=== PATIENT | male | born 1985 | race Caucasian/White ===

== ENCOUNTER 2018-01-04 21:12 | Emergency (ER) | payer BC ==
[2018-01-04 21:27] VITALS: BP 138/91
--- NOTE | 2018-01-04 22:12 | UC ---
Respiratory Complaint HPI - HPI Summary HPI Summary: 1 week of sinus pressure and headache with intermittent dizziness and nausea. Patient has a cough and sore throat with some abdominal pain and loose stools. Had a flu shot couple of weeks ago. Possible fever 2 days ago but none since. - History of Current Complaint Chief Complaint: UCGeneralIllness Stated Complaint: FLU SYMPTOMS Time Seen by Provider: 01/04/18 21:51 Hx Obtained From: Patient Onset/Duration: Gradual Onset, Lasting Days, Still Present Timing: Constant Severity Initially: Moderate Severity Currently: Moderate Pain Intensity: 5 Pain Scale Used: 0-10 Numeric Character: Cough: Nonproductive Aggravating Factors: Nothing Alleviating Factors: Nothing Associated Signs And Symptoms: Positive: URI, Sinus Discomfort. Negative: Wheezing - Allergies/Home Medications Allergies/Adverse Reactions: Allergies Allergy/AdvReac Type Severity Reaction Status Date / Time hydrocodone Allergy Rash Verified 01/04/18 21:28 ondansetron [From Zofran] Allergy Rash Verified 01/04/18 21:29 Opioids-Methadone and Related Allergy Rash Verified 01/04/18 21:29 PMH/Surg Hx/FS Hx/Imm Hx Previously Healthy: Yes - Surgical History Surgical History: Yes Surgery Procedure, Year, and Place: appe 2005. Kidney stones removal - Family History Known Family History: Negative: Hypertension - Social History Alcohol Use: None Substance Use Type: Marijuana Substance Use Comment - Amount & Last Used: WEEKENDS Smoking Status (MU): Never Smoked Tobacco Have You Smoked in the Last Year: No Review of Systems Constitutional: Chills, Fatigue ENT: Sore Throat, Nasal Discharge, Sinus Congestion Respiratory: Cough Cardiovascular: Negative Gastrointestinal: Negative Neurological: Headache All Other Systems Reviewed And Are Negative: Yes Physical Exam Triage Information Reviewed: Yes Appearance: Well-Appearing, No Pain Distress, Well-Nourished Vital Signs: Initial Vital Signs Temp 99.2 F 01/04/18 21:21 Pulse 81 01/04/18 21:21 Resp 16 01/04/18 21:21 BP 138/91 01/04/18 21:21 Pulse Ox 98 01/04/18 21:21 Vital Signs Reviewed: Yes Eyes: Positive: Conjunctiva Clear ENT: Positive: Hearing grossly normal, Pharynx normal, TMs normal Neck: Positive: Supple, Nontender, No Lymphadenopathy Respiratory Exam: Normal Cardiovascular Exam: Normal Abdomen Description: Positive: Soft, Other: - MILDLY TENDER DIFFUSELY. NO REBOUND OR RIGIDITY. Negative: CVA Tenderness (R), CVA Tenderness (L), Distended, Guarding Bowel Sounds: Positive: Present Musculoskeletal: Positive: No Edema Neurological: Positive: Alert Psychological: Positive: Age Appropriate Behavior Skin: Negative: rashes UC Diagnostic Evaluation - Laboratory O2 Sat by Pulse Oximetry: 98 Respiratory Course/Dx - Differential Dx/Diagnosis Provider Diagnoses: ACUTE VIRAL SYNDROME Discharge - Sign-Out/Discharge Documenting (check all that apply): Patient Departure All imaging exams completed and their final reports reviewed: No Studies - Discharge Plan Condition: Stable Disposition: HOME Patient Education Materials: Viral Syndrome (ED) Forms: *Work Release Referrals: Flower Acevedo MD [Primary Care Provider] - If Needed Additional Instructions: YOUR SYMPTOMS ARE LIKELY VIRALLY MEDIATED AND SHOULD RESOLVE ON THEIR OWN WITH TIME. NO INDICATION FOR ANTIBIOTICS AT PRESENT. REST, HYDRATE, OTC MEDS NEEDED. SEEK FOLLOW-UP IF YOU ARE NOT IMPROVING OVER THE NEXT 1-2 WEEKS. VIRAL SYNDROME: The physician has diagnosed a viral infection. Viruses not only cause "colds," but can cause many different symptoms including generalized aching, fever, headache, cough, diarrhea, nausea, vomiting, and fatigue. The treatment, for the most part, is simply relief of symptoms. This means that antibiotics are usually not given. Rest, fluids, pain medications and, occasionally, medication for the specific symptoms that are most bothersome will be prescribed. Go to the ED if you develop any new or unusual symptoms such as severe headache, stiff neck, high fever, chest pain, productive cough, or shortness of breath. You should be rechecked if you don't see marked improvement within 10 to 14 days. - Billing Disposition and Condition Condition: STABLE Disposition: Home
== END 2018-01-04 22:11 | disposition home or self-care (01) ==
LOC: UCEAST 21:12
DX: B34.9 Viral infection, unspecified (principal); R51 Headache; R42 Dizziness and giddiness; R11.0 Nausea; R05 Cough; J02.9 Acute pharyngitis, unspecified; J34.89 Other specified disorders of nose and nasal sinuses; R10.9 Unspecified abdominal pain; Z88.5 Allergy status to narcotic agent; Z88.8 Allergy status to other drugs, medicaments and biological substances
CPT/HCPCS: 99211; G0463

== ENCOUNTER 2018-09-09 10:12 | Emergency (ER) | payer BC ==
--- NOTE | 2018-09-09 10:39 | UC ---
Skin Complaint HPI - HPI Summary HPI Summary: 33 yo male presents with rash to right leg. He tells me that 2 days ago he was outside a lot and was playing with a child. Was doing a lot of sitting and laying on the pavement, concrete, and grass. Yesterday morning noticed a faint redness to his right leg that was a little more red around his right ankle. Today the redness has become darker and he has some pain in the bottom of his foot when walking. He took some ibuprofen which helped a little. Denies exposure to any allergen, fever, chills, recent illness, sore throat, SOB, chest pain. He also stubbed his right 5th toe on a toy firetruck and is black and blue today. - History of Current Complaint Time Seen by Provider: 09/09/18 10:39 Stated Complaint: SKIN ISSUE Hx Obtained From: Patient Onset/Duration: Gradual Onset Onset Severity: Mild Current Severity: Mild Pain Intensity: 1 Pain Scale Used: 0-10 Numeric - Allergy/Home Medications Allergies/Adverse Reactions: Allergies Allergy/AdvReac Type Severity Reaction Status Date / Time hydrocodone Allergy Rash Verified 09/09/18 10:38 ondansetron [From Zofran] Allergy Rash Verified 09/09/18 10:38 Opioids-Methadone and Related Allergy Rash Verified 09/09/18 10:38 PMH/Surg Hx/FS Hx/Imm Hx - Additional Past Medical History Additional PMH: Lyme disease - Surgical History Surgical History: Yes Surgery Procedure, Year, and Place: appe 2005. Kidney stones removal - Family History Known Family History: Negative: Hypertension - Social History Lives: With Family Alcohol Use: None Substance Use Type: Marijuana Substance Use Comment - Amount & Last Used: WEEKENDS Smoking Status (MU): Never Smoked Tobacco Have You Smoked in the Last Year: No Review of Systems All Other Systems Reviewed And Are Negative: Yes Constitutional: Positive: Negative Skin: Positive: Rash Respiratory: Positive: Negative Cardiovascular: Positive: Negative Neurovascular: Positive: Negative Musculoskeletal: Positive: Other: - 5th toe pain Neurological: Positive: Negative Psychological: Positive: Negative Physical Exam - Summary Physical Exam Summary: GENERAL: NAD. WDWN. No pain distress. SKIN: LEFT LOWER LEG: Scant mild erythema with faint warmth RIGHT LOWER LEG: At the medial ankle there is a moderately erythematous flat rash extending from the inferior medial maellous to the distal medial tibia. Remainder of leg with scant faint erythema. NTTP. Mild warmth. No edema, open wounds, drainage, or streaking. NECK: Supple. Nontender. No lymphadenopathy. CHEST: CTAB. No r/r/w. No accessory muscle use. Breathing comfortably and in no distress. CV: RRR. Without m/r/g. Pulses intact. TP and DP b/l LEs intact. Cap refill < 2seconds MSK: Right 5th toe with ecchymosis and mild edema. NTTP. FROM without pain. RIGHT ANKLE: FROM without pain. NEURO: Alert. PSYCH: Age appropriate behavior. Triage Information Reviewed: Yes Vital Signs: Vital Signs: Temp Pulse Resp BP Pulse Ox 97.6 F 84 18 118/87 99 09/09/18 10:39 09/09/18 10:39 09/09/18 10:39 09/09/18 10:39 09/09/18 10:39 Vital Signs Reviewed: Yes Course/Dx - Course Course Of Treatment: He has no pain in his right 5th toe and has FROM. Discussed obtaining XRs today , but pt declined and he will krystal tape the toe. Regarding his rash; I suspect photodermatitis vs cellulitis. I asked Dr. Brush to examine the rash and he suggests cellulitis. Will place pt on Clindamycin. The borders of the rash were marked with a purple marking pen. Advised pt that if the rash spreads beyond the borders or if he develops a fever, new, or worsening symptoms to go to the ED. He voiced understanding and agrees with the plan. - Diagnoses Provider Diagnosis: Cellulitis Discharge - Sign-Out/Discharge Documenting (check all that apply): Patient Departure All imaging exams completed and their final reports reviewed: No Studies - Discharge Plan Condition: Stable Disposition: HOME Prescriptions: Clindamycin Cap(NF) [Clindamycin Cap 300 mg Cap(NF)] 300 mg PO TID #21 cap Patient Education Materials: Cellulitis (ED) Forms: *Work Release Referrals: Flower Acevedo MD [Primary Care Provider] - Additional Instructions: If you develop a fever, shortness of breath, chest pain, new or worsening symptoms - please call your PCP or go to the ED immediately. Monitor the area and if you notice the redness increasing in size beyond the marked borders - please go to the ER. - Billing Disposition and Condition Condition: STABLE Disposition: Home
[2018-09-09 10:46] VITALS: BP 118/87
== END 2018-09-09 11:21 | disposition home or self-care (01) ==
LOC: UCEAST 10:12
DX: L03.115 Cellulitis of right lower limb (principal); Z88.5 Allergy status to narcotic agent; Z88.8 Allergy status to other drugs, medicaments and biological substances
CPT/HCPCS: 99212; G0463

== ENCOUNTER 2019-02-28 19:05 | Emergency (ER) | payer BC ==
[2019-02-28 19:43] LABS: ABS Basophils 0.1 10^3/ul (0-0.2); ABS Eosinophils 0.1 10^3/ul (0-0.6); ABS Lymphocytes 1.4 10^3/ul (1.0-4.8); ABS Monocytes 0.7 10^3/ul (0-0.8); ABS Neutrophils 4.4 10^3/ul (1.5-7.7); Eosinophil % 0.9 %; Hematocrit 43 % (42-52); Hemoglobin 15.2 g/dL (14.0-18.0); Lymphocyte % 20.7 %; Mean Corpuscular HGB Conc 35 g/dL (31-36); Mean Corpuscular Hemoglobin 31 pg (27-31); Mean Corpuscular Volume 89 fL (80-94); Mean Platelet Volume 9.3 fL (7.4-10.4); Nucleated Red Blood Cells % 0.1; Platelet Count 217 10^3/uL (150-450); Red Blood Count 4.85 10^6 /uL (4.18-5.48); Red Cell Distribution Width 13 % (10-15); White Blood Count 6.5 10^3/uL (3.5-10.8)
[2019-02-28 19:51] LABS: INR 1.02 (0.82-1.09)
[2019-02-28 20:08] LABS: Albumin 4.6 g/dL (3.2-5.2); Albumin/Globulin Ratio 1.6 (1-3); BUN/Creatinine Ratio 8.9 (8-20); Calcium 9.5 mg/dL (8.6-10.3); EGFR African American 91.4 (>60); EGFR Non-African American 75.5 (>60); Globulin 2.9 g/dL (2-4); Potassium 3.8 mmol/L (3.5-5.0); Total Bilirubin 0.4 mg/dL (0.2-1.0); Total Protein 7.5 g/dL (6.4-8.9)
--- NOTE | 2019-02-28 23:47 | ED ---
HPI Chest Pain - HPI Summary HPI Summary: Patient complains of dry cough 3 weeks, with sore throat, constant sternal chest pain and SOB S/P episodes of hacking cough starting today around 5 PM. Chest pain at worse 7/10, currently resolving. No pain with inhalation, no pain with movement. Denies fever, ear pain, neck stiffness, N/V/D, abdominal pain, change in urine, change in BM. Denies prior cardiac history. Denies prior respiratory history. Denies family cardiac history. Nonsmoker. Medical history is none. - History of Current Complaint Chief Complaint: EDUpperRespComplaint Time Seen by Provider: 02/28/19 23:44 Hx Obtained From: Patient Onset/Duration: Started Hours Ago Timing: Constant Initial Severity: Moderate Current Severity: Mild Pain Intensity: 6 Pain Scale Used: 0-10 Numeric Chest Pain Location: Mid Sternal Chest Pain Radiates: No Character: Burning Aggravating Factor(s): Other: Alleviating Factor(s): Spontaneous Resolution Associated Signs and Symptoms: Positive: Chest Pain, Shortness of Breath, Cough , Nonproductive Cough - Allergy/Home Medications Allergies/Adverse Reactions: Allergies Allergy/AdvReac Type Severity Reaction Status Date / Time hydrocodone Allergy Rash Verified 02/28/19 19:23 ondansetron [From Zofran] Allergy Rash Verified 02/28/19 19:23 Opioids-Methadone and Related Allergy Rash Verified 02/28/19 19:23 PMH/Surg Hx/FS Hx/Imm Hx Endocrine/Hematology History: Denies: Hx Bone Marrow Disease, Hx Diabetes, Hx Sickle Cell Disease, Hx Thyroid Disease, Hx Anemia Cardiovascular History: Denies: Hx Hypertension, Hx Pacemaker/ICD, Other Cardiovascular Problems/ Disorders Respiratory History: Denies: Hx Asthma, Hx Chronic Obstructive Pulmonary Disease (COPD) GI History: Reports: Hx Hiatal Hernia Denies: Hx Ulcer, Other GI Disorders History: Reports: Hx Kidney Stones - RIGHT Musculoskeletal History: Reports: Hx Arthritis - HANDS Denies: Other Musculoskeletal History Sensory History: Reports: Hx Contacts or Glasses - CONTACTS Denies: Hx Hearing Aid Opthamlomology History: Reports: Hx Contacts or Glasses - CONTACTS Neurological History: Reports: Hx Migraine - 1-2 PER YEAR Psychiatric History: Denies: Hx Panic Disorder - Surgical History Surgery Procedure, Year, and Place: appe 2005. Kidney stones removal Hx Anesthesia Reactions: No Infectious Disease History: No Infectious Disease History: Denies: Hx Clostridium Difficile, Hx Hepatitis, Hx Human Immunodeficiency Virus (HIV), Hx of Known/Suspected MRSA, Hx Shingles, Hx Tuberculosis, Hx Known/ Suspected VRE, Hx Known/Suspected VRSA, History Other Infectious Disease, Traveled Outside the [place] in Last 30 Days - Family History Known Family History: Negative: Hypertension - Social History Alcohol Use: None Substance Use Type: Reports: Marijuana Substance Use Comment - Amount & Last Used: WEEKENDS Smoking Status (MU): Never Smoked Tobacco Have You Smoked in the Last Year: No Review of Systems Constitutional: Negative Eyes: Negative Positive: Sore Throat Positive: Chest Pain Positive: Shortness Of Breath, Cough Gastrointestinal: Negative Genitourinary: Negative Musculoskeletal: Negative Skin: Negative Neurological: Negative Psychological: Normal All Other Systems Reviewed And Are Negative: Yes Physical Exam - Summary Physical Exam Summary: Chest pain not reproducible. Lung sounds clear to auscultation bilaterally. Triage Information Reviewed: Yes Vital Signs On Initial Exam: Initial Vitals Temp Pulse Resp BP Pulse Ox 97.7 F 90 16 130/84 98 02/28/19 19:15 02/28/19 19:15 02/28/19 19:15 02/28/19 19:15 02/28/19 19:15 Vital Signs Reviewed: Yes Appearance: Positive: Well-Appearing Skin: Positive: Warm Head/Face: Positive: Normal Head/Face Inspection Eyes: Positive: Normal ENT: Positive: Pharyngeal erythema, TMs normal, Tonsillar swelling, Uvula midline. Negative: Tonsillar exudate, Trismus, Muffled voice, Hoarse voice Neck: Positive: Supple Respiratory/Lung Sounds: Positive: Clear to Auscultation Cardiovascular: Positive: Normal Abdomen Description: Positive: Nontender Musculoskeletal: Positive: Normal Neurological: Positive: Normal Psychiatric: Positive: Normal AVPU Assessment: Alert - Kimberly Coma Scale Best Eye Response: 4 - Spontaneous Best Motor Response: 6 - Obeys Commands Best Verbal Response: 5 - Oriented Coma Scale Total: 15 Procedures - Sedation Patient Received Moderate/Deep Sedation with Procedure: No Diagnostics - Vital Signs Vital Signs Temp Pulse Resp BP Pulse Ox 02/28/19 21:39 97.7 F 84 16 154/93 98 02/28/19 19:15 97.7 F 90 16 130/84 98 - Laboratory Lab Results: Lab Results 1202/28/19 02/28/19 Range/Units 19:30 19:30 19:30 WBC 6.5 (3.5-10.8) 10^3/uL RBC 4.85 (4.18-5.48) 10^6 /uL Hgb 15.2 (14.0-18.0) g/dL Hct 43 (42-52) % MCV 89 (80-94) fL MCH 31 (27-31) pg MCHC 35 (31-36) g/dL RDW 13 (10-15) % Plt Count 217 (150-450) 10^3/uL MPV 9.3 (7.4-10.4) fL Neut % (Auto) 67.5 % Lymph % (Auto) 20.7 % Hays % (Auto) 10.1 % Eos % (Auto) 0.9 % Baso % (Auto) 0.8 % Absolute Neuts (auto) 4.4 (1.5-7.7) 10^3/ul Absolute Lymphs (auto) 1.4 (1.0-4.8) 10^3/ul Absolute Monos (auto) 0.7 (0-0.8) 10^3/ul Absolute Eos (auto) 0.1 (0-0.6) 10^3/ul Absolute Basos (auto) 0.1 (0-0.2) 10^3/ul Absolute Nucleated RBC 0.0 10^3/ul Nucleated RBC % 0.1 INR (Anticoag Therapy) 1.02 (0.82-1.09) Sodium 138 (135-145) mmol/L Potassium 3.8 (3.5-5.0) mmol/L Chloride 104 (101-111) mmol/L Carbon Dioxide 27 (22-32) mmol/L Anion Gap 7 (2-11) mmol/L BUN 10 (6-24) mg/dL Creatinine 1.12 (0.67-1.17) mg/dL Est GFR ( Amer) 91.4 (>60) Est GFR (Non-Af Amer) 75.5 (>60) BUN/Creatinine Ratio 8.9 (8-20) Glucose 95 (70-100) mg/dL Calcium 9.5 (8.6-10.3) mg/dL Total Bilirubin 0.40 (0.2-1.0) mg/dL AST 21 (13-39) U/L ALT 37 (7-52) U/L Alkaline Phosphatase 59 (34-104) U/L Troponin I 0.00 (<0.03) ng/mL Total Protein 7.5 (6.4-8.9) g/dL Albumin 4.6 (3.2-5.2) g/dL Globulin 2.9 (2-4) g/dL Albumin/Globulin Ratio 1.6 (1-3) Result Diagrams: 02/28/19 19:30 02/28/19 19:30 Lab Statement: Any lab studies that have been ordered have been reviewed, and results considered in the medical decision making process. Chest Pain Course/Dx - Course Course Of Treatment: Patient complains of dry cough 3 weeks, with sore throat, constant sternal chest pain and SOB S/P episodes of hacking cough starting today around 5 PM. Chest pain at worse 7/10, currently resolving. No pain with inhalation, no pain with movement. Denies fever, ear pain, neck stiffness, N/V/D, abdominal pain, change in urine, change in BM. Denies prior cardiac history. Denies prior respiratory history. Denies family cardiac history. Nonsmoker. Medical history is none. Vital signs within normal limits. Labs unremarkable. Chest x-ray unremarkable. Strep negative. - Diagnoses Provider Diagnoses: Pharyngitis, Cough, Chest pain Discharge ED - Sign-Out/Discharge Documenting (check all that apply): Patient Departure - Discharge Plan Condition: Stable Disposition: HOME Patient Education Materials: Pharyngitis (ED) Referrals: Flower Acevedo MD [Primary Care Provider] - Additional Instructions: Use Tessalon pearls as directed for cough. Alternate ibuprofen 600 mg with Tylenol 650 mg every 3 hours as needed for chest pain related to cough. Follow- up with primary care. Return to the ED for any new or worsening symptoms. - Billing Disposition and Condition Condition: STABLE Disposition: Home
[2019-03-01] MEDS ORDERED: Benzonatate CAP* 100 MG PO ONE (00:20)
[2019-03-01 00:55] LABS: Rapid Strep Molecular Negative (Negative)
[2019-03-01 01:02] LABS: Influenza A Molecular NEGATIVE (Negative); Influenza B Molecular NEGATIVE (Negative)
[2019-03-01] MEDS ORDERED: Azithromycin TAB* 250 MG PO ONE (01:06)
[2019-03-01 01:21] VITALS: BP 122/90
== END 2019-03-01 01:21 | disposition home or self-care (01) ==
LOC: ED 19:05
DX: J02.9 Acute pharyngitis, unspecified (principal); R05 Cough; R07.9 Chest pain, unspecified; Z88.5 Allergy status to narcotic agent; Z88.8 Allergy status to other drugs, medicaments and biological substances
CPT/HCPCS: 36415; 71046; 80053; 84484; 85025; 85610; 87651; 93005; 99283; A9270-GY

== ENCOUNTER 2023-02-07 18:33 | Observation (INO) ==
[2023-02-07 19:28] LABS: ABS Basophils 0.1 10^3/uL (0.0-0.1); ABS Eosinophils 0.1 10^3/uL (0.0-0.5); ABS Lymphocytes 1.5 10^3/uL (1.0-4.8); ABS Neutrophils 6.5 10^3/uL (1.5-7.6); Eosinophil % 0.7 %; Hematocrit 41.7 % (38-53); Hemoglobin 14.4 g/dL (13.2-16.3); Lymphocyte % 16.2 %; Mean Corpuscular Hemoglobin 30.7 pg (27-33); Mean Corpuscular Hgb Conc 34.5 g/dL (31-36); Mean Platelet Volume 9.6 fL (7.5-11.2); Platelet Count 200 10^3/uL (150-450); Red Blood Count 4.68 10^6/uL (4.06-5.63); White Blood Count 9.2 10^3/uL (3.6-10.2)
[2023-02-07 19:36] LABS: Urine Appearance Clear; Urine Bilirubin Negative (Negative); Urine Blood 2+ (Negative); Urine Color Colorless; Urine Glucose Negative (Negative); Urine Ketones Negative (Negative); Urine Nitrite Negative (Negative); Urine Protein Negative (Negative); Urine Specific Gravity 1.002 (1.002-1.030); Urine Urobilinogen Negative (Negative)
[2023-02-07] MEDS ORDERED: Lactated Ringers 1000 ml BAG 1,000 ML IV ONE ×2 (19:47→20:25)
[2023-02-07 19:48] LABS: Albumin 4.3 g/dL (3.2-5.2); Albumin/Globulin Ratio 1.5 (1-3); Calcium 9.4 mg/dL (8.6-10.3); Creatinine, Serum 1.37 mg/dL (0.67-1.17); Globulin 2.8 g/dL (2-4); Potassium 3.8 mmol/L (3.5-5.0); Total Bilirubin 0.3 mg/dL (0.2-1.0); Total Protein 7.1 g/dL (6.4-8.9); Urine Bacteria Absent (Absent); Urine Red Blood Cell 1+(3-5/hpf) (Absent); Urine White Blood Cell Absent (Absent); eGFR CKD-EPI 68.1 (>60)
[2023-02-07] MEDS ORDERED: Metoclopramide 5 MG/ML VIAL (10 mg) IV ONE (19:48)
[2023-02-07] MEDS ORDERED: Acetaminophen IV 1 GM/100ML 1,000 MG/100 ML BAG IV PRN (21:59)
[2023-02-07] MEDS: Lactated Ringers 1000 ml BAG 1,000 ML IV SCH (23:20)
[2023-02-07 23:21] LABS: INR 0.95 (0.83-1.13)
[2023-02-08 07:02] LABS: Calcium 8.8 mg/dL (8.6-10.3); Creatinine, Serum 1.17 mg/dL (0.67-1.17); Potassium 3.8 mmol/L (3.5-5.0); eGFR CKD-EPI 82.3 (>60)
[2023-02-08] MEDS: Lactated Ringers 1000 ml BAG 1,000 ML IV SCH (10:27)
[2023-02-08] MEDS ORDERED: Prochlorperazine 5 mg/ml 2 ml VIAL (10 mg) IV PRN (11:22)
[2023-02-08] MEDS ORDERED: Prochlorperazine 5 mg/ml 2 ml VIAL (10 mg) ONE (11:24)
[2023-02-08] MEDS ORDERED: Buffered Lidocaine 1% SYRIN 1 ml INTRADERM ONE (13:53)
[2023-02-08] MEDS ORDERED: Iohexol 180 (CONTRAST) 10 ML SDV IV ONE (13:54)
[2023-02-08] MEDS ORDERED: fentaNYL 100 mcg/2 ml 50 MCG/ML VIAL IV PRN (13:55)
[2023-02-08] MEDS ORDERED: Naloxone 0.4 mg VIAL 0.4 mg/ml 1 ml VIAL IV PRN (13:55)
[2023-02-08] MEDS ORDERED: Lactated Ringers 1000 ml BAG 1,000 ML IV SCH (14:00)
[2023-02-08] MEDS ORDERED: Midazolam 2 mg/2 ml VIAL 1 mg/ml 2 ml VIAL (2 mg) ONE (14:02)
[2023-02-08] MEDS ORDERED: fentaNYL 100 mcg/2 ml 50 MCG/ML VIAL ONE ×2 (14:02→15:27)
[2023-02-08] MEDS ORDERED: Lidocaine 2% PF 5 ML VIAL ONE (14:04)
[2023-02-08] MEDS ORDERED: Dexamethasone IV 4 MG/ML VIAL 1 ml VIAL ONE (14:06)
[2023-02-08] MEDS ORDERED: Ondansetron 4 mg VIAL 2 MG/ML 2 ml VIAL ONE ×2 (14:06→15:27)
[2023-02-08] MEDS ORDERED: Propofol 10 MG/ML 20 ML BTL ONE (14:06)
[2023-02-08] MEDS ORDERED: Phenylephrine 40 mcg/mL 10mL (400mcg) SYRINGE ONE (14:52)
[2023-02-08 19:18] VITALS: BP 150/95
== END 2023-02-08 18:20 | disposition home or self-care (01) ==
LOC: EDHOLD 18:33 → ED 18:33 → SUATTDRO 22:04 → SSU 02-08 00:09
PROVIDERS: ADMIT Hospitalist; ATTEND Hospitalist